=== PATIENT | female | born 1945 | race Caucasian/White ===

== ENCOUNTER → 2023-09-06 10:55 | Outpatient (REF) | payer OTHER, SELFPAY | LOC: RCS 10:55 | PROVIDERS: ATTENDING PHYSICIAN Internal Medicine Cardiovascular Disease; FAMILY PHYSICIAN Physician Assistant | DX: I49.1 Atrial premature depolarization (principal); I49.3 Ventricular premature depolarization | CPT/HCPCS: 93225; 93226 ==

== ENCOUNTER → 2023-09-12 13:53 | Outpatient (REF) | payer OTHER, SELFPAY | LOC: DHCBC HW 13:53 | PROVIDERS: ATTENDING PHYSICIAN Internal Medicine Cardiovascular Disease; FAMILY PHYSICIAN Physician Assistant | DX: I49.3 Ventricular premature depolarization (principal); I49.1 Atrial premature depolarization | CPT/HCPCS: 93306 ==

== ENCOUNTER 2023-10-22 09:44 | Day surgery (SDC) | payer OTHER, SELFPAY ==
--- NOTE | 2023-10-21 07:52 | HPS.HSE ---
Family Physician
-
Family Physician: NO INTERVIEW UNKNOWN
Chief Complaint
-
Persistent atrial fibrillation.
History of Present Illness
The patient is a 78 year old female presenting today for persistent atrial fibrillation. The patient reports a wide variety of symptoms associated with this diagnosis, which include palpitations, dyspnea on exertion, dizziness, and lightheadedness.
She is currently taking Metoprolol Succinate for pharmacological therapy. She is compliant with Eliquis for oral anticoagulation. She notes that her current symptoms greatly interfere with her activities of daily living and are overall impacting her
quality of life. She is interested in pursuing a cardioversion for further arrhythmia management. She denies any current complaints today such as chest pain, shortness of breath at rest, nausea, vomiting, diarrhea, cough, sore throat, or fever.
Medical History
Past Medical History
Past Medical History: Reports Other
Additional Past Medical History:
1. Persistent atrial fibrillation, pharmacological therapy with Metoprolol Succinate, oral anticoagulation with Eliquis.
2. Hypertension.
3. Dyslipidemia.
4. Paroxysmal atrial tachycardia.
5. PVCs.
6. Mild mitral regurgitation.
7. Mild tricuspid regurgitation.
8. Cerebrovascular accident, 07/2021, with short term memory loss.
9. GERD.
10. Diverticulosis.
11. Remote migraines.
12. Basal cell carcinoma, nose, status post MOHS.
13. Glaucoma, status post laser treatment.
14. Osteopenia.
15. Lyme disease 1998.
16. Hearing impairment bilaterally.
17. Obesity, BMI 31.7.
Past Surgical History: Reports Other
Additional Past Surgical History:
1. Left femur ORIF.
2. Cholecystectomy.
3. x2.
4. Basal cell carcinoma excision.
5. Laser treatment of glaucoma.
6. Cataract extraction.
7. Colonoscopy x3.
Social History
Tobacco: Non-smoker
Alcohol: Occasional
Living: Alone (in a third floor apartment with an elevator. )
Family History
Family History: Not pertinent
Allergies / Home Medications
Allergy/Medication List:
Home medications:
1. Amlodipine 5 mg p.o. every evening.
2. Eliquis 5 mg p.o. twice a day.
3. Arnica 3 tablets p.o. daily as needed.
4. Lisinopril-Hydrochlorothiazide 20-25 mg p.o. daily.
5. Metoprolol Succinate 25 mg p.o. daily.
Allergies: Penicillin. Sulfa. Tetracycline. Propranolol.
Review of Systems
-
A 12 point ROS was completed and negative except as noted: Yes
Physical Exam
Vital Signs
Blood pressure 131/68. Heart rate 89. Respirations 18. Pulse ox 97%.
Height 5 feet, 4 inches. Weight 83.8 kg. BMI 31.7.
Physical Exam
General: Well Developed, Well Nourished and No Apparent Distress
HEENT: NormoCephalic, Moist mucous membranes, Atraumatic and PERRLA
Respiratory: Clear
Cardiac: Irregular Rhythm
GI: Soft, Non Tender and Non Distended
Musculoskeletal: Normal Gait & Station
Skin: Warm and Dry
Neuro: AO x 3 and Nonfocal/grossly intact
Laboratory Results
-
EKG 10/21/2023: Atrial fibrillation with premature ventricular or aberrantly conducted complexes. Septal infarct, cited on or before 06/08/2015.
Echocardiogram 09/12/2023: Normal LV size and function with no regional wall motion abnormalities. Estimated LV ejection fraction 55 to 60% by visualization. Normal right ventricular size and function. Mild mitral regurgitation. Trace aortic
regurgitation. Mild tricuspid regurgitation. Estimated pulmonary artery pressure of 30 mmHg, assuming a right atrial pressure of 3 mmHg. Compared to prior from July 23, 2021, no significant change.
Nuclear stress test 02/15/2020: Negative EKG for ischemia. Normal perfusion imaging. Resting hypertension noted. The ejection fraction is 69%. This is a moderate risk study due to limited functional capacity.
Impression/Plan
-
IMPRESSION/PLAN:
1. Persistent atrial fibrillation: The patient is in need of a cardioversion with Dr. Cristóbal Carmen on 10/22/2023. The benefits and risks of the procedure have been explained to the patient. The patient understands these risks and wishes to
proceed. She will continue oral anticoagulation with Eliquis pre-operatively.
[2023-10-21 10:19] VITALS: BMI 31.7
== END 2023-10-22 11:12 | disposition home or self-care (01) ==
LOC: CATH 09:44
PROVIDERS: ATTENDING PHYSICIAN Internal Medicine; FAMILY PHYSICIAN Physician Assistant; OTHER PHYSICIAN Internal Medicine Cardiovascular Disease
DX: I48.19 Other persistent atrial fibrillation (principal); R00.2 Palpitations; R06.09 Other forms of dyspnea; R42 Dizziness and giddiness; Z79.01 Long term (current) use of anticoagulants; Z79.899 Other long term (current) drug therapy; I10 Essential (primary) hypertension; E78.5 Hyperlipidemia, unspecified; I08.1 Rheumatic disorders of both mitral and tricuspid valves; Z86.73 Personal history of transient ischemic attack (TIA), and cerebral infarction without residual deficits; I49.3 Ventricular premature depolarization; K21.9 Gastro-esophageal reflux disease without esophagitis; K57.90 Diverticulosis of intestine, part unspecified, without perforation or abscess without bleeding; G43.909 Migraine, unspecified, not intractable, without status migrainosus; Z85.828 Personal history of other malignant neoplasm of skin; H40.9 Unspecified glaucoma; M85.80 Other specified disorders of bone density and structure, unspecified site; Z86.19 Personal history of other infectious and parasitic diseases; H91.90 Unspecified hearing loss, unspecified ear; E66.9 Obesity, unspecified; Z68.31 Body mass index [BMI] 31.0-31.9, adult; Z88.0 Allergy status to penicillin; Z88.2 Allergy status to sulfonamides; Z88.1 Allergy status to other antibiotic agents
CPT/HCPCS: 92960; 93005

== ENCOUNTER → 2023-11-05 14:33 | Outpatient (REF) | payer OTHER, SELFPAY ==
[2023-11-05 16:29] LABS: % Basophils 0.8 % (0-2); % Eosinophils 0.7 % (0-6); % Immature Granulocytes 0.4 % (0-0.5); % Lymphocytes 29.3 % (20.5-51.1); % Monocytes 10.2 % (1.7-9.3); % Neutrophils 58.6 % (42.2-75.2); Absolute Basophils 0.1 10^3/uL (0-0.2); Absolute Eosinophils 0.1 10^3/uL (0-0.7); Absolute Immature Granulocytes 0.1 10^3/uL (0-0.05); Absolute Lymphocytes 4.1 10^3/uL (1.2-3.4); Absolute Monocytes 1.4 10^3/uL (0.1-0.6); Absolute Neutrophils 8.2 10^3/uL (1.4-6.5); Hematocrit 38.5 % (37.0-47.0); Hemoglobin 13.2 g/dL (12.0-16.0); Mean Corp Hgb Conc. 34.3 g/dL (33.0-37.0); Mean Corpuscular Hgb 31.7 pg (27.0-31.0); Mean Corpuscular Volume 92.5 fL (81.0-99.0); Mean Platelet Volume 9.6 fL (7.4-10.4); Nucleated Red Blood Cells % 0 %; Platelet Count 361 10^3/uL (130-400); Red Blood Cell Count 4.16 10^6/uL (4.20-5.40); Red Cell Dist. Width 12.5 % (11.5-14.5)
[2023-11-05 16:35] LABS: Erythrocyte Sed Rate 24 mm/hour (0-20)
[2023-11-05 16:48] LABS: Uric Acid 5.3 mg/dl (2.5-6.2)
[2023-11-06 15:13] LABS: Lyme Antibody Screen, EIA Negative (Negative)
== END ==
LOC: RAD 14:33
PROVIDERS: ATTENDING PHYSICIAN Physician Assistant
DX: M25.572 Pain in left ankle and joints of left foot (principal)
CPT/HCPCS: 36415; 73610; 84550; 85025; 85652; 86140; 86618

== ENCOUNTER → 2023-12-03 15:18 | Outpatient (REF) | payer OTHER, SELFPAY | LOC: WDC 15:18 | PROVIDERS: ATTENDING PHYSICIAN Physician Assistant | DX: Z12.31 Encounter for screening mammogram for malignant neoplasm of breast (principal) | CPT/HCPCS: 77063; 77067 ==

== ENCOUNTER 2024-01-29 06:04 | Day surgery (SDC) | payer OTHER, SELFPAY ==
[2024-01-13 11:01] VITALS: BMI 31.7
[2024-01-13 12:00] LABS: % Eosinophils 2.5 % (0-6); % Immature Granulocytes 0.2 % (0-0.5); % Lymphocytes 34.8 % (20.5-51.1); % Monocytes 8.4 % (1.7-9.3); % Neutrophils 53.1 % (42.2-75.2); Absolute Basophils 0.1 10^3/uL (0-0.2); Absolute Eosinophils 0.2 10^3/uL (0-0.7); Absolute Lymphocytes 3.2 10^3/uL (1.2-3.4); Absolute Monocytes 0.8 10^3/uL (0.1-0.6); Absolute Neutrophils 4.9 10^3/uL (1.4-6.5); Hematocrit 40.1 % (37.0-47.0); Hemoglobin 13.9 g/dL (12.0-16.0); Mean Corp Hgb Conc. 34.7 g/dL (33.0-37.0); Mean Corpuscular Hgb 32.1 pg (27.0-31.0); Mean Corpuscular Volume 92.6 fL (81.0-99.0); Nucleated Red Blood Cells % 0 %; Platelet Count 335 10^3/uL (130-400); Red Blood Cell Count 4.33 10^6/uL (4.20-5.40); Red Cell Dist. Width 13.2 % (11.5-14.5); White Blood Cell Count 9.3 10^3/uL (4.8-10.8)
[2024-01-13 12:06] LABS: ALT (SGPT) 18 U/L (0-35); AST (SGOT) 26 U/L (14-36); Albumin 4.7 g/dl (3.5-5.0); Alkaline Phosphatase 74 U/L (38-126); Blood Urea Nitrogen 11 mg/dl (7-17); Carbon Dioxide 22 mmol/L (22-30); Chloride 108 mmol/L (98-107); Estimated Creatinine Clearance 60 ml/min; Glucose 107 mg/dl (70-99); Potassium 4.2 mmol/L (3.5-5.1); Sodium 140 mmol/L (135-145); Total Bilirubin 0.9 mg/dl (0.2-1.3); Total Protein 7.5 g/dl (6.3-8.2); eGFR > 60.00
[2024-01-29] VITALS (33 sets, daily range): BP systolic 87–138; BP diastolic 50–92; BMI 31.2
[2024-01-29] MEDS: TYLENOL 1000 MG PO (07:10)
--- NOTE | 2024-01-29 07:26 | PTCARENOTE ---
Spoke to pt's sister Gabbi to inform her of timeline for pt's procedure today.
[2024-01-29 08:39] LABS: ACT-LR - POC 347 Seconds (116-155)
[2024-01-29 09:03] LABS: ACT-LR - POC 343 Seconds (116-155)
[2024-01-29 09:29] LABS: ACT-LR - POC 313 Seconds (116-155)
--- NOTE | 2024-01-29 10:19 | ITS.CL.ABL ---
Bladder Blower - Ablation
Ablation
Procedure Report:
AFIB ablation:
Ms. Beckford is a very pleasant 79 yr old woman with medical history significant for symptomatic persistent atrial fibrillation who is here in the EP lab for atrial fibrillation ablation
Date of Procedure:
01/29/2024
Indications:
Symptomatic atrial fibrillation
Pre-Operative Diagnosis:
Persistent Atrial fibrillation
Post-Operative Diagnosis:
Persistent Atrial fibrillation
Procedure Performed:
Atrial fibrillation ablation with wide area circumferential ablation (WACA) approach for pulmonary vein isolation
Performing Physician:
Dylon Bai MD
Assistants:
EP staff
Anesthesia:
See anesthesia records
Detailed Description of the Procedure:
Written informed consent was obtained from the patient after a full explanation of the risks and benefits of the procedure including the risks of sedation and anesthesia.
The patient was brought to the electrophysiology laboratory in stable condition in fasting state. Continuous electrocardiographic and hemodynamic monitoring was initiated.
The initial rhythm was atrial fibrillation.
The procedure site was meticulously prepared with surgical scrub and allowed to dry with no pooling. Sterile draping was applied to cover the procedure site. The image intensifier was draped with sterile bag and positioned over the patient. After
infusion of local anesthetic, vascular access was obtained under ultrasound guidance and sheaths were placed over guide wire as detailed below.
Sheath and Catheter Placement:
In the right femoral vein, an 8-Mozambican sheath was placed for use during the ablation procedure. A second 9-Fr sheath was placed for use during intracardiac echo procedure.
The sheaths were upgraded as needed during the case. Intracardiac catheters were positioned using direct fluoroscopic guidance.� ICE catheter was placed in RA. The following catheters / sheaths were placed
Sheaths:
��������������� Agilis sheath in right femoral vein upgraded from 8Fr in right femoral vein
��������������� 9Fr in right femoral vein
��������������� 7fr in right femoral vein
Catheters:
������������� Biosense Ha Thermacool STSF bidirectional (D/F) - at locations of HRA, RV, LA and LV.
������������� Pentaray catheter � at locations of RA� and LA
������������� ICE catheter - at locations of RA, SVC, and RV.
������������� Decapolar Bard catheter � at locations of RA and CS
Intracardiac ECHO:
An 8-Mozambican AcuNav intracardiac ECHO (ICE) probe was advanced through the 9-Mozambican sheath in the femoral vein into the right atrium under fluoroscopic and ICE ultrasound image guidance and a baseline ECHO study was performed. The left atrial size
was enlarged. There was trace tricuspid regurgitation. The aortic valve was normal. There was normal left ventricular size and function. There was no pericardial effusion. The KONRAD has low velocities noted on Doppler in atrial fibrillation. All the
four veins were identified and good flow noted.
During the procedure, ICE was used for monitoring of complications, guidance of trans-septal puncture, monitor the catheter position and tracking ablation lesions. No change in the pericardial space noted throughout the procedure.
Trans-septal Puncture:
Heparin was initiated and infused to maintain appropriate ACT.
A J-tipped guidewire was advanced through the 8-Mozambican sheath in the right femoral vein into the superior vena cava under fluoroscopic and ICE guidance. The 8-Mozambican sheath was exchanged for an Agilis sheath which was advanced into the superior vena
cava. A BRK needle was advanced until the tip was slightly behind the tip of the dilator inside the Agilis. The apparatus was withdrawn until it was in contact with the fossa ovalis. The position was adjusted based on fluoroscopy and ultrasound
images from ICE. Under fluoroscopic, hemodynamic and ICE ultrasound guidance, left atrium was cannulated by advancing the needle. Once atrial septum was cannulated, the needle was pulled back and a BMW guide wire was advanced through the needle into
the left atrium. The guide wire was advanced into the left superior pulmonary vein. Both the sheath and the dilator was advanced into the left atrium. The dilator with the needle was withdrawn. Blood was aspirated from the Agilis sheath and arterial
blood confirmed. The sheath was flushed. Saline injection noted into the left atrium on ICE. The pressure waveform was checked ad LA pressure measured. The penta-ray catheter was advanced in the Agilis sheath into the left pulmonary vein.
The 3-D mapping was done and then the penta-ray was switched to ablation catheter and back to penta-ray as needed.
3D Electroanatomic Mapping:
Using the Pentaray catheter advanced through Agilis sheath into the left atrium, an electroanatomic map (EAM) of the left atrium was created using [employer] Carto mapping system. The map was used for localization of catheter position and
tacking of ablation lesions. The EAM of the left atrium showed 4 pulmonary veins with all four electrically connected to the body the LA. It showed extensive low voltage areas in atrial fibrillation on the posterior wall of the LA in atrial
fibrillation and in sinus rhythm. The LA was dilated in size.
There were multitude of non-sustained AT noted once sinus rhythm achieved. There was catheter induced irritability and ectopy noted.
The four pulmonary veins were very active and significant ectopy was noted.
Following the EAM, preparations were made for ablation.
Phrenic nerve stimulation attempt:
The right sided pulmonary veins were identified and the anterior antrum and the deep anterior locations of the PVs were check with high output stimulation that showed no phrenic nerve capture in any of the potential ablation areas.
The safe areas were marked and a design line was created through the safe areas of tested antral myocardium for ablation lesions.
Ablation:
Pulmonary vein Isolation:
Radiofrequency ablation was performed using an open irrigation, force-sensing 3.5mm radiofrequency ablation catheter (Thermocool STSF) by completing the circumferential lesions around the left and right pulmonary veins achieving pulmonary vein
isolation.
All the ablation lesions were guided by the [facility] SURPOINT module with the posterior lesions were limited to 45 gutiérrez for SURPOINT lesion index goal of 400 and anterior wall lesions were limited to SURPOINT index goal of 450.
The esophagus was noted to be on the right side of the LA near the PV antra based on the locations of the esophageal temperature probe. Ablation was stopped for any temperature increase of 0.1 degree C. Max esophageal temperature was 38.1C.
Cardioversion:
Due to the persistence of atrial fibrillation following the PVI, the decision was made to proceed with a cardioversion followed by the remainder of the ablation as detailed below. Therefore, a 200J shock was delivered to the chest via Zoll patches
placed with episcopal of sinus rhythm. The patient remained hemodynamically stable throughout.
The CS was paced with the ablator and no cardiac pause noted.
EP study and Confirmation of the PVI and bidirectional block:
Following achievement of entrance block at the pulmonary veins, pacing from the pentaray catheter in KONRAD and the pentaray in each of the four veins at 10 milliamps for 2 milliseconds showed entrance and exit block. All PVI were rechecked at the end
of the case and remained isolated with dissociated and local capture with pacing. Entrance and exit block were demonstrated in all veins.
The atria tachycardia mapping was attempted but was non-sustained and were multiple with various locations. Decision was made to give Metoprolol and start Amiodarone for next few months.
The LA was mapped with Carto EAM in sinus rhythm confirming the line of block at the ablation lesions lines.
Sinus Node Function: The sinus node functions are within acceptable normal range.
The AV bharati functions are deemed within normal range.
Arrhythmia Induction:
No sustained arrhythmia was induced at the end of the study.�
Procedure End
ICE study was done again that showed no epicardial accumulation. No complications noted.
Following the completion of the EP study, catheters were removed. Protamine 30 mg was given at the end of the procedure and ACT was checked repeatedly. The sheaths were removed and hemostasis achieved with manual compression after acceptable ACT is
achieved.
Left atrial Pressure:
Pre-Procedure: Mean LA pressure was 13mmHg
Post-Procedure: Mean LA pressure was 15mmHg
Post-Procedure: Mean RA pressure was 8mmHg
Estimated Blood loss:
<10 cc
Specimens Removed:
None.
Implants / Devices:
None
Urine output:
None
Packs / Drains/ Tubes:
None
Instrument / Sponge Count Correct:
Yes
Complications of the Procedure:
None
Condition of Patient at Time of Transfer:
Hemodynamically stable with no neurological or vascular compromise.
Summary:
Successful atrial fibrillation ablation with circumferential bidirectional line of block at pulmonary vein antra (Pulmonary vein isolation)
AT#1
AT #2
--- NOTE | 2024-01-29 11:20 | PTCARENOTE ---
Pt post PVI. Pt arrived in controlled atrial fibrillation. Received in report pt having runs of atrial tachycardia during procedure. Pt arrived to procedure room in SR with PAC's and frequent runs of atrial tachycardia to high teens. Pt's blood
pressure 80-90's/50-70's. Pt asymptomatic and without complaints. Pt denies dizziness, lightheadedness, chest pain, and or SOB. EKG done. Karen Singer NP made aware and in to evaluate pt. No further orders at this time. Will continue to monitor.
[2024-01-29] MEDS: TOPROL XL 25 MG PO (13:05)
--- NOTE | 2024-01-29 14:55 | W.PN.UPDATE ---
Update Note
Progress Note Update
79 yo WF s/p PVI (same day She feels good, no cp, sob, carmen diet, voiding, amb w/o dizziness, R fem site c/d/i, EKG SR with intermittent PAT. She will continue OAC Eliquis dose at 4pm at home. She will continue metoprolol and we will add Amiodarone
200mg daily for 6 mo. She did receive 150mg IV bolus intraop. She will be on PPI for 2 weeks. Activity restrictions reviewed. She will f/u with MOTOR ELECTRICIAN in 2 weeks. She is for d/c home after 3pm.
Ms. Beckford is a very pleasant 79 yr old woman with medical history significant for symptomatic persistent atrial fibrillation who is here in the EP lab for atrial fibrillation ablation
01/29/2024
Post-Operative Diagnosis:
Persistent Atrial fibrillation
Procedure Performed:
Atrial fibrillation ablation with wide area circumferential ablation (WACA) approach for pulmonary vein isolation
== END 2024-01-29 15:10 | disposition home or self-care (01) ==
LOC: CATH 06:04
PROVIDERS: ATTENDING PHYSICIAN Internal Medicine Cardiovascular Disease; FAMILY PHYSICIAN Physician Assistant; OTHER PHYSICIAN Internal Medicine Cardiovascular Disease
DX: I48.19 Other persistent atrial fibrillation (principal); I10 Essential (primary) hypertension; E78.5 Hyperlipidemia, unspecified; Z86.73 Personal history of transient ischemic attack (TIA), and cerebral infarction without residual deficits; Z79.01 Long term (current) use of anticoagulants; Z79.899 Other long term (current) drug therapy; I47.19 Other supraventricular tachycardia; M85.80 Other specified disorders of bone density and structure, unspecified site; E66.9 Obesity, unspecified; Z68.31 Body mass index [BMI] 31.0-31.9, adult; Z88.0 Allergy status to penicillin; Z88.1 Allergy status to other antibiotic agents; Z88.2 Allergy status to sulfonamides; Z88.8 Allergy status to other drugs, medicaments and biological substances
CPT/HCPCS: C1769; C1894; C1730; C1732; C1766; C1892; C1759; 36415; 76937; 80053; 85025; 85347; 86850; 86900; 86901; 93005; 93656

== ENCOUNTER 2024-02-01 16:19 | Observation (INO) | payer OTHER, SELFPAY ==
[2024-02-01] VITALS (8 sets, daily range): BP systolic 111–135; BP diastolic 68–92; BMI 32.9; BMI 31.6
--- NOTE | 2024-02-01 09:56 | ED.GENMED ---
History of Present Illness
General
Chief Complaint: Breathing Problem
Source: patient
Exam Limitations: none
Time Seen by Provider: 02/01/24 09:52
History of Present Illness
History of Present Illness:
79-year-old female increased shortness of breath the last 2 or 3 days. This all started after a ablation for atrial fibrillation. No chest pain no pleuritic pain no back pain no fever. Symptoms are moderate in nature. Needs to sleep sitting up.
Some exertional component in addition
Past History
Past History
ED Past Medical History: HTN
ED Past Surgical History: Gynecological and Orthopedic
Social History
Tobacco: Non-smoker
Alcohol: None
Drug: None
Personal:
Living: with family
Employment: Retired
Family History
Family History: Other (Noncontributory)
Review of Systems
Review of Systems
All Other Systems: Not applicable
Constitutional: Denies fever
Respiratory: Reports cough
Cardiac: Denies chest pain or syncope
Phy Exam
Physical Exam
Physical Exam:
GENERAL: Alert and oriented in no apparent distress
EYE: Orbits normal.
NECK: Supple. No thyroid palpable
ENT: Pharynx without erythema
CARDIAC: Regular rate and rhythm without any obvious murmurs.
LUNGS: Minimally tachypneic with talking. Bibasilar Rales. No wheezing or rhonchi
ABDOMEN: Soft, without focal tenderness or distention
NEUROLOGICAL: Alert and oriented , grossly non-focal
SKIN: Warm and dry, no rash or lesion, no discoloration, skin intact.
MUSCULOSKELETAL: No edema,no deformity.Good color
PSYCH: Normal and appropriate interaction.
Scores
Heart Failure Risk
Heart Failure Risk Score: Yes
History of Stroke or TIA: No
History of intubation for respiratory distress: No
Heart rate on ED arrival >/= 110: No
SaO2 <90% on arrival on room air: No
HR >/=110 during 3min walk test (or too ill to perform test): Yes
ECG has acute ischemic changes: No
Urea >/=12mmol/L (BUN 33.6mg/dL): No
Serum CO2>/=35mmol/L: No
Troponin I or T elevated to IN Level (0.4mg/dL): No
NT-proBNP >/=5,000ng/L (5,000pg/ml): No
HF Risk Score: 2
Admission Status: MEDIUM RISK 9.2% Consider observation or discharge to home with homecare & f/u visit to PCP/Animal Laboratory Technician, or SNF for treatment
Course
Orders/Labs/Results
Orders:
Orders
02/01/24 09:38
Electrocardiogram (*1) Urgent
Reason for Study: Chest Pain
EKG- Treatment ONCE
02/01/24 10:07
IV Insert/Care/Rem.- Treatment PRN
Pulse Ox/cont/shift [RESP] Stat
Quantity: 1
02/01/24 10:09
Cardiac Monitoring- Treatment ONCE
CR Chest - 2 Views Urgent
Comment:
Reason For Exam: Short of breath/recent ablation
02/01/24 10:19
Basic Metabolic Panel Urgent
Complete Blood Count/With Diff Urgent
NT-proBNP Urgent
Troponin I Urgent
02/01/24 12:01
COVID-19 Antigen Routine
02/01/24 12:42
Furosemide [Lasix] 40 mg IV NOW STA
02/01/24 14:05
Echo 2D MMode Color/Doppler Routine
Reason for Study: CHEST PAIN POST ABLATION
02/01/24 15:20
Admit/Transfer Patient As Directed
Co-Sign Provider:
Level of Care: Inpatient admission
Assign to:: IVU
Physician / Group: rhea
Diagnosis: acuteleft HF
Reason for Hospitalization: acute HF
Expected length of stay greater than two midnights?: Yes
ELOS- Estimated Length of Stay in days: 2
I certify the patient meets the requirements for IP care: Yes
PRN Pain Medication Management As Directed
May give lesser potent ordered pain med per pt: Yes
preference::
Protocol:: Medication orders for pain may be administered in a
manner that supports deferring to patient preference
when the pt is:
-Requesting an ordered lesser potent pain medication.
Least to most potent pain medications are defined as:
acetaminophen < NSAID < tramadol < opioids (morphine,
oxycodone, hydromorphone).
- Requesting a lesser dose of the same medication IF
ORDERED.
- Requesting a less intrusive route of administration
if both routes are prescribed by the provider (PO <
IV).
02/01/24 20:27
Troponin I Routine
02/02/24 06:00
CBC/With Diff [Complete Blood Count/With Diff] IN AM
Renal Profile IN AM
Troponin I IN AM
Abnormal Lab Results
02/01/24
10:19
WBC 11.5 H 10^3/uL
(4.8-10.8)
RBC 3.89 L 10^6/uL
(4.20-5.40)
Hct 35.8 L %
(37.0-47.0)
MCH 31.9 H pg
(27.0-31.0)
Absolute Lymphs (auto) 3.5 H 10^3/uL
(1.2-3.4)
Absolute Monos (auto) 1.3 H 10^3/uL
(0.1-0.6)
Monocytes % 11.1 H %
(1.7-9.3)
Troponin I 0.105 H* ng/ml
02/01/24 10:19
02/01/24 10:19
Vital Signs
Initial and Last Documented VS:
Initial Vital Signs
Temp Pulse Resp BP Pulse Ox
99.1 F 65 16 134/72 96
02/01/24 09:39 02/01/24 09:39 02/01/24 09:39 02/01/24 09:39 02/01/24 09:39
Last Documented Vital Signs
Temp Pulse Resp BP Pulse Ox
99.1 F 62 18 123/74 96
02/01/24 09:39 02/01/24 16:13 02/01/24 16:13 02/01/24 16:13 02/01/24 16:13
*Radiology
Radiology exam reviewed: radiology read reviewed (Interstitial edema)
*Pulse Oximetry
Patient hypoxic: no
*EKG
Interpreted by ED Provider?: Yes
Interpretation: abnormal
Comparison EKG: changes noted (Improved lateral T wave changes)
Heart Rate: 70
Rate: normal
Rhythm: PAC's
[place]: indeterminate
Interval: normal interval
QRS Pattern: poor R-wave progression
Ischemia: non-specific ST changes
*Critical Care Note
Total Time (30-74mins, 75-104mins- exclusive of procedures): Not Applicable
Update Note
Update Note:
1243.... Patient appears to be in some CHF. Weight gain. Pulmonary edema by x-ray. Elevated proBNP. Interestingly patient was on a KIMBERLY inhibitor/hydrochlorothiazide that was stopped 2 weeks ago which also may be a factor. As far as her sulfa
allergy she is not sure. This was a long time ago and she thought she had a rash. However she has tolerated hydrochlorothiazide without any issues which has the same type of sulfur ring.
1600... Seen and admitted by cardiology
ED Attending Note
-
Portions of this chart may have been created with voice recognition software.� Occasional wrong word or��sound alike� substitutions may have occurred due to the inherent limitations of voice recognition software.
Discharge Plan
Departure
Patient Disposition: Admit
Date of Disposition: 02/01/24
Time of Disposition: 16:16
Presentation/result/management discussed w/ accepting MD/DO: Cardiology
Discharge Problem:
Pulmonary edema, Recent atrial fibrillation ablation
Prescriptions:
No Action
amlodipine 5 mg Tablet
5 mg PO QPM
metoprolol succinate 25 mg Tablet Extended Release 24 Hr
25 mg PO BID
Eliquis 5 mg Tablet
5 mg PO BID
arnica
3 pellet PO QIDPRN PRN (Reason: mild pain)
lisinopril 20 mg Tablet
20 mg PO DAILY
Skelp
3 pellet PO QIDPRN PRN (Reason: mild pain)
amiodarone 200 mg tablet
200 mg PO DAILY Qty: 90 3RF
pantoprazole [Protonix] 40 mg tablet,delayed release (DR/EC)
40 mg PO DAILY Qty: 14 0RF
Referrals:
Domenica Alvarez PA-C [Family Provider] -
Interventions
Interventions:
*Risk Screen - Suicide Last Done: 02/01/24 10:14
*General Assessment Last Done: 02/01/24 10:14
*Neglect/Abuse Screening Last Done: 02/01/24 10:14
ED- Fall Risk Assessment Last Done: 02/01/24 10:13
*ED COVID-19 Vaccine History Last Done: 02/01/24 10:14
ED- Cardiac Assessment Last Done: 02/01/24 10:15
ED- Pulmonary Assessment Last Done: 02/01/24 10:15
Discharge Date and Time
Print Language: SAMI
[2024-02-01 11:15] LABS: % Basophils 0.5 % (0-2); % Eosinophils 1.5 % (0-6); % Immature Granulocytes 0.3 % (0-0.5); % Lymphocytes 30.3 % (20.5-51.1); % Monocytes 11.1 % (1.7-9.3); % Neutrophils 56.3 % (42.2-75.2); Absolute Basophils 0.1 10^3/uL (0-0.2); Absolute Eosinophils 0.2 10^3/uL (0-0.7); Absolute Lymphocytes 3.5 10^3/uL (1.2-3.4); Absolute Monocytes 1.3 10^3/uL (0.1-0.6); Absolute Neutrophils 6.5 10^3/uL (1.4-6.5); Hematocrit 35.8 % (37.0-47.0); Hemoglobin 12.4 g/dL (12.0-16.0); Mean Corp Hgb Conc. 34.6 g/dL (33.0-37.0); Mean Corpuscular Hgb 31.9 pg (27.0-31.0); Mean Platelet Volume 10.3 fL (7.4-10.4); Nucleated Red Blood Cells % 0 %; Platelet Count 282 10^3/uL (130-400); Red Blood Cell Count 3.89 10^6/uL (4.20-5.40); Red Cell Dist. Width 14.1 % (11.5-14.5); White Blood Cell Count 11.5 10^3/uL (4.8-10.8)
[2024-02-01 11:28] LABS: Blood Urea Nitrogen 12 mg/dl (7-17); Calcium 9.5 mg/dl (8.4-10.2); Carbon Dioxide 27 mmol/L (22-30); Chloride 106 mmol/L (98-107); Estimated Creatinine Clearance 62 ml/min; Glucose 98 mg/dl (70-99); Potassium 4.3 mmol/L (3.5-5.1); Sodium 135 mmol/L (135-145); eGFR > 60.00
[2024-02-01 11:43] LABS: NT-proBNP 894 pg/ml; Troponin I 0.105 ng/ml
[2024-02-01 12:39] LABS: COVID-19 Antigen Negative (Negative)
[2024-02-01] MEDS: LASIX 40 MG IV (12:51)
--- NOTE | 2024-02-01 15:10 | W.PN.CD ---
Today's Communication / Plan
-
Diuresis
Monitor on telemetry
Serial troponins
Echo
Impression / Plan
-
78-year-old woman with persistent atrial fibrillation who underwent PVI on , 01/29/[address] Schuler. She states that when she got home she had some mild residual chest sensation also felt a little short of breath but then last night she
felt more short of breath and chest felt a bit tight. Even felt some shortness of breath after she got up. She called me and then was directed to the ER. No fever or cough. No lower extremity edema
A-fib ablation [facility] approach for PVI 01/29/2024
No history of CAD
In ER was suspected to have CHF and was given Lasix. She has undergone some diuresis and feels her breathing is improved and chest sensation has resolved.
Initial troponin 0.1
ECG sinus rhythm with no acute abnormality
PAST MEDICAL HISTORY:
1. Persistent symptomatic atrial fibrillation.CHADSVAC 6
2. Hypertension.
3. Hyperlipidemia.
4. 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
5. Osteopenia.
6. Obesity, BMI 31.7.
7. Lyme disease
8. Left femur ORIF, left femoral silvano
9. Cholecystectomy
10..
Medications
amiodarone 200 mg a day
Amlodipine 5 mg every afternoon
Lisinopril 20 mg daily
Metoprolol succinate 25 mg twice daily
Protonix 40 mg a day
[place] 3 pellets 4 times daily as needed
Social history non-smoker occasional alcohol sisters at the bedside
Allergies penicillin propranolol, statins, sulfa and tetracycline
Family history mother had rheumatic fever mitral valve disease and heart failure
Chest x-ray 02/01/2024 mild acute interstitial cardiogenic edema, small right and minimal left pleural effusions
Physical Exam
Vital Signs/Labs
Vital Signs
Temp Pulse Resp BP Pulse Ox
99.1 F 68 18 121/72 96
02/01/24 09:39 02/01/24 13:56 02/01/24 13:56 02/01/24 13:56 02/01/24 13:56
01/31/24 02/01/24 02/02/24
06:59 06:59 06:59
Actual Weight 85.5 kg
02/01/24 10:19
02/01/24 10:19
02/01/24
10:19
Pnt-[id number]-Scxcbaskwcq Pept 894
LAB Results
02/01/24
10:19
Troponin I 0.105 H*
Physical Exam
Constitutional: No acute distress
Cardiovascular: Rhythm & rate is regular (No murmur no bruit)
Respiratory: Wheeze Absent
GI: Soft
Neuro/Psych: Alert
Other: Skin
Data Reviewed
-
Date of Service: February 01, 2024
Medical Decision Making: Reviewed Test Results
Echo: Report Reviewed by me
Medical Tests (PFT, Pathology etc): Report Reviewed by me
Labs: Labs Reviewed by me
--- NOTE | 2024-02-01 18:33 | PTCARENOTE ---
Pt admitted from ED with SOB and constant 2/10 chest tightness since her PVI on 01/29/24. Pt stated she felt much better after diuresing with lasix in ED. Right femoral venous site ecchymotic and soft. Pt given CHF information. Telemetry shows sinus
rhythm with occasional PAC's.
[2024-02-01] MEDS: PACERONE 200 MG PO (19:57)
[2024-02-01] MEDS: ELIQUIS 5 MG PO (19:58)
[2024-02-01] MEDS: TOPROL XL 25 MG PO (19:58)
[2024-02-01] MEDS: PROTONIX 40 MG PO (19:58)
--- NOTE | 2024-02-01 20:40 | PTCARENOTE ---
Assumed care of patient at 1900, vs downloaded by me prior to that time were from previous shift.
[2024-02-01] MEDS: NORVASC 5 MG PO (20:58)
[2024-02-01 21:57] LABS: Troponin I 0.087 ng/ml
--- NOTE | 2024-02-01 23:36 | PTCARENOTE ---
No complaints of pain or discomfort. SR on the monitor in the 70's.
[2024-02-02 05:23] VITALS: BP 120/63
[2024-02-02 05:33] VITALS: BMI 31.5
[2024-02-02 06:16] LABS: % Basophils 0.7 % (0-2); % Eosinophils 2.5 % (0-6); % Immature Granulocytes 0.3 % (0-0.5); % Lymphocytes 31.8 % (20.5-51.1); % Monocytes 10.9 % (1.7-9.3); % Neutrophils 53.8 % (42.2-75.2); Absolute Basophils 0.1 10^3/uL (0-0.2); Absolute Eosinophils 0.3 10^3/uL (0-0.7); Absolute Lymphocytes 3.8 10^3/uL (1.2-3.4); Absolute Monocytes 1.3 10^3/uL (0.1-0.6); Absolute Neutrophils 6.5 10^3/uL (1.4-6.5); Hematocrit 35.5 % (37.0-47.0); Hemoglobin 12.6 g/dL (12.0-16.0); Mean Corp Hgb Conc. 35.5 g/dL (33.0-37.0); Mean Corpuscular Hgb 32.1 pg (27.0-31.0); Mean Corpuscular Volume 90.6 fL (81.0-99.0); Mean Platelet Volume 10.1 fL (7.4-10.4); Nucleated Red Blood Cells % 0 %; Platelet Count 281 10^3/uL (130-400); Red Blood Cell Count 3.92 10^6/uL (4.20-5.40); Red Cell Dist. Width 13.6 % (11.5-14.5); White Blood Cell Count 12.1 10^3/uL (4.8-10.8)
[2024-02-02 06:35] LABS: Blood Urea Nitrogen 12 mg/dl (7-17); Calcium 9.7 mg/dl (8.4-10.2); Carbon Dioxide 27 mmol/L (22-30); Chloride 103 mmol/L (98-107); Estimated Creatinine Clearance 59 ml/min; Glucose 101 mg/dl (70-99); Potassium 3.7 mmol/L (3.5-5.1); Sodium 137 mmol/L (135-145); Troponin I 0.079 ng/ml; eGFR > 60.00
[2024-02-02 07:02] VITALS: BP 117/72
[2024-02-02 07:10] LABS: Hepatitis C Antibody Negative (Negative)
--- NOTE | 2024-02-02 08:08 | W.PN.CD ---
Today's Communication / Plan
-
- Stable for discharge
Impression / Plan
-
78-year-old woman with persistent atrial fibrillation who underwent PVI on , 01/29/[address] Schuler - was noted to have edema and pleural effusion s/p diuresis and is feeling much better.
Can be discharged home today. PRN lasix 20 mg QD.
A-fib ablation [facility] approach for PVI 01/29/2024
No history of CAD
In ER was suspected to have CHF and was given Lasix. She has undergone some diuresis and feels her breathing is improved and chest sensation has resolved.
Initial troponin 0.1
ECG sinus rhythm with no acute abnormality
PAST MEDICAL HISTORY:
1. Persistent symptomatic atrial fibrillation.CHADSVAC 6
2. Hypertension.
3. Hyperlipidemia.
4. 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
5. Osteopenia.
6. Obesity, BMI 31.7.
7. Lyme disease
8. Left femur ORIF, left femoral silvano
9. Cholecystectomy
10..
Medications
amiodarone 200 mg a day
Amlodipine 5 mg every afternoon
Lisinopril 20 mg daily
Metoprolol succinate 25 mg twice daily
Protonix 40 mg a day
[place] 3 pellets 4 times daily as needed
Social history non-smoker occasional alcohol sisters at the bedside
Allergies penicillin propranolol, statins, sulfa and tetracycline
Family history mother had rheumatic fever mitral valve disease and heart failure
Chest x-ray 02/01/2024 mild acute interstitial cardiogenic edema, small right and minimal left pleural effusions
Physical Exam
Vital Signs/Labs
Vital Signs
Temp Pulse Resp BP Pulse Ox
98.9 F 64 20 120/63 98
02/02/24 06:57 02/02/24 06:00 02/02/24 06:57 02/02/24 05:23 02/02/24 06:57
02/01/24 02/02/24 02/03/24
06:59 06:59 06:59
Actual Weight 80.7 kg
02/02/24 05:29
02/02/24 05:29
02/01/24
10:19
Djf-B-Fpeacitisth Pept 894
LAB Results
02/01/24 02/01/24 02/02/24
10:19 21:15 05:29
Troponin I 0.105 H* 0.087 H* 0.079 H*
Physical Exam
Constitutional: No acute distress and Comfortable
EENT: Anicteric and Moist mucous membranes
Cardiovascular: Rhythm & rate is regular, Pedal edema is absent and JVD pressure is normal
Respiratory: Respiratory effort normal, Lungs clear to auscul. and Wheeze Absent
GI: Soft, Non tender and Normal bowel sounds
Neuro/Psych: Alert, Oriented and AO x 3
Data Reviewed
-
Date of Service: February 02, 2024
Medical Decision Making: Reviewed Test Results, Independent Historian Assessment and Test Interpretation
EKG: Tracing Personally Visualized and interpreted
Echo: Report Reviewed by me
X-Ray/CT/US/MRI/NUC/PET: Image Personally Visualized and interpreted
Labs: Labs Reviewed by me
Old Records: Reviewed
[2024-02-02] MEDS: PACERONE 200 MG PO (09:36)
[2024-02-02] MEDS: NORVASC 5 MG PO (09:37)
[2024-02-02] MEDS: ZESTRIL 20 MG PO (09:37)
[2024-02-02] MEDS: TOPROL XL 25 MG PO (09:37)
[2024-02-02] MEDS: PROTONIX 40 MG PO (09:37)
[2024-02-02] MEDS: ELIQUIS 5 MG PO (09:38)
--- NOTE | 2024-02-02 10:06 | W.DS.TRANS ---
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
-
Discharge Instructions:
Sleep Apnea Risk Low
Discharge Diagnosis/Procedures HFpEF
Pleural effusions
Atrial fibrillation ablation 01/29/2024
Diet 2 Gram Sodium,Low Cholesterol
Activity No strenuous activity
Additional Activity Continue post procedure instructions
Driving Restrictions As prior to admission
Bathing Restrictions None
Blood Work BMP in one week. This has been electronically
sent to [facility] lab.
Specialty Instructions Weigh Daily
Instructions:
Stand-Alone Forms:
Changes to Home Medications: Yes
Discharge Medications:
DC Medications w/original date entered in [employer]
amlodipine 5 mg tablet 5 mg PO QPM Blood Pressure 10/16/23
apixaban 5 mg tablet (Eliquis) 5 mg PO BID Blood Clot Prevention/Tx 10/16/23
arnica 3 pellet PO QIDPRN PRN mild pain 10/16/23
metoprolol succinate 25 mg tablet,extended release 24 hr 25 mg PO BID Blood Pressure 10/16/23
lisinopril 20 mg tablet 20 mg PO DAILY Blood Pressure 01/09/24
[place] 3 pellet PO QIDPRN PRN mild pain 01/29/24
amiodarone 200 mg tablet 200 mg PO DAILY Arrhythmia 02/02/24
furosemide 20 mg tablet 20 mg PO DAILY #30 tabs 02/02/24
pantoprazole 40 mg tablet,delayed release (Protonix) 40 mg PO DAILY Gastrointestinal Issue 02/02/24
Home Medication Changes
Furosemide is NEW
Pending Results: No
[2024-02-02] MEDS: LASIX 20 MG PO (10:30)
--- NOTE | 2024-02-02 11:59 | CM ---
spoke to pt i room, she is prev indep, lives alone in an apt with no steps to enter. she denies any dc planning needs or dme's. plan is for dc to home today.
--- NOTE | 2024-02-02 12:56 | PTCARENOTE ---
D/C instructions given to patient, verbalizes understanding. INT D/C'd, telemetry D/C'd, personal belongings packed and sent home with patient. D/C to home via wc accompanied by vol. services.
== END 2024-02-02 13:03 | disposition home or self-care (01) ==
LOC: IVU 16:19
PROVIDERS: ADMITTING PHYSICIAN Internal Medicine Cardiovascular Disease; EMERGENCY PHYSICIAN Emergency Medicine; FAMILY PHYSICIAN Physician Assistant
DX: G89.18 Other acute postprocedural pain (principal); I48.19 Other persistent atrial fibrillation; I50.31 Acute diastolic (congestive) heart failure; R06.02 Shortness of breath; R07.9 Chest pain, unspecified; I11.0 Hypertensive heart disease with heart failure; R05.9 Cough, unspecified; J90 Pleural effusion, not elsewhere classified; J98.11 Atelectasis; M19.012 Primary osteoarthritis, left shoulder; M19.011 Primary osteoarthritis, right shoulder; J81.0 Acute pulmonary edema; I08.3 Combined rheumatic disorders of mitral, aortic and tricuspid valves; E66.9 Obesity, unspecified; E78.5 Hyperlipidemia, unspecified; M85.80 Other specified disorders of bone density and structure, unspecified site; I69.320 Aphasia following cerebral infarction; Z68.31 Body mass index [BMI] 31.0-31.9, adult; Z98.890 Other specified postprocedural states; Z79.01 Long term (current) use of anticoagulants; Z88.1 Allergy status to other antibiotic agents; Z88.0 Allergy status to penicillin; Z88.2 Allergy status to sulfonamides; Z88.8 Allergy status to other drugs, medicaments and biological substances; Z82.49 Family history of ischemic heart disease and other diseases of the circulatory system; Z11.52 Encounter for screening for COVID-19
CPT/HCPCS: 71046; 80048; 80069; 83880; 84484; 85025; 86803; 87811; 93005; 93306; 96374; 99285; G0378

== ENCOUNTER → 2024-02-11 09:25 | Outpatient (REF) | payer OTHER, SELFPAY ==
[2024-02-11 11:45] LABS: Blood Urea Nitrogen 12 mg/dl (7-17); Calcium 9.7 mg/dl (8.4-10.2); Carbon Dioxide 24 mmol/L (22-30); Chloride 106 mmol/L (98-107); Glucose 101 mg/dl (70-99); Potassium 4.2 mmol/L (3.5-5.1); Sodium 138 mmol/L (135-145); eGFR > 60.00
== END ==
LOC: REG 09:25
PROVIDERS: ATTENDING PHYSICIAN Internal Medicine Cardiovascular Disease; FAMILY PHYSICIAN Physician Assistant
DX: I50.30 Unspecified diastolic (congestive) heart failure (principal)
CPT/HCPCS: 36415; 80048; 83735

== ENCOUNTER 2024-09-28 03:15 | Emergency (ER) | payer OTHER, SELFPAY ==
[2024-09-28 03:17] VITALS: BP 190/91
[2024-09-28 03:27] VITALS: BP 161/79
--- NOTE | 2024-09-28 03:39 | ED.GENMED ---
History of Present Illness
General
Chief Complaint: Urinary Symptoms
Time Seen by Provider: 09/28/24 03:22
History of Present Illness
History of Present Illness:
79-year-old female with history of A-fib status post ablation on Eliquis and hypertension presenting to the emergency department for concern of UTI. No since yesterday morning she has had dysuria and 'murky 'urine. She reports that she has had 2
urine infections in the past month, treated with Macrobid with improvement. Also notes some back pain and chills. Symptoms worsened prior to arrival. Denies chest pain or difficulty breathing. Denies abdominal pain. Denies additional acute
medical complaints
Past History
Past History
ED Past Medical History: HTN
ED Past Surgical History: Gynecological and Orthopedic
Social History
Tobacco: Non-smoker
Alcohol: None
Drug: None
Personal:
Living: with family
Employment: Retired
Family History
Family History: Other (Noncontributory)
Phy Exam
Physical Exam
Physical Exam:
General: Well-appearing, no clinical signs of dehydration, nontoxic and in no acute distress
HEENT: protecting airway
Neck: appears supple
CV: Normal heart rate, regular rhythm,
Resp: No accessory muscle use, no increased work of breathing, lungs clear to auscultation bilaterally
Abd: Soft and non-distended, no tenderness to palpation, no CVA tenderness
Extremities: No deformities, no swelling
Neuro: alert, no focal neurologic deficit
: deferred
Rectal: deferred
Psych: Normal affect
Skin: Intact
Sepsis
Sepsis Screening
Sepsis Assessment: Sepsis Ruled Out
Sepsis Screen
Sepsis Screen: Sepsis Ruled Out
Date: 09/28/24
Time: 06:46
Course
Orders/Labs/Results
Orders:
Orders
09/28/24 03:39
Complete Blood Count/With Diff Urgent
Comprehensive Metabolic Panel Urgent
Urinalysis Reflex To Culture Urgent
Date Specimen was Collected: 09/28/24
Time Specimen was Collected: 03:34
Urine Microscopic Reflex Cult Urgent
Urine Culture Urgent
CARINA Source: U
Specimen Description:
Date Specimen was Collected: 09/28/24
Time Specimen was Collected: 03:34
09/28/24 04:23
CT Abd/pelvis W Iv Cont Urgent
Comment:
Reason For Exam: urinary symptoms, back pain
09/28/24 06:20
Cephalexin Monohydrate [Keflex] 500 mg PO NOW STA
Abnormal Lab Results
09/28/24
03:39
WBC 11.1 H 10^3/uL
(4.8-10.8)
MCH 32.9 H pg
(27.0-31.0)
Absolute Lymphs (auto) 4.4 H 10^3/uL
(1.2-3.4)
Absolute Monos (auto) 1.1 H 10^3/uL
(0.1-0.6)
Monocytes % 9.8 H %
(1.7-9.3)
Chloride 97 L mmol/L
(98-107)
Ur Occult Blood Reflex 1+ A
(Negative)
Leukocyte Esterase Rfl 3+ A
(Negative)
Urine RBC 3-6 A /HPF
(0-2)
Urine WBC (Reflex) >100 A /HPF
(0-5)
Urine Bacteria (Reflex) Moderate A
(Negative)
09/28/24 03:39
09/28/24 03:39
Vital Signs
Initial and Last Documented VS:
Initial Vital Signs
Temp Pulse Resp BP Pulse Ox
97.8 F 74 22 190/91 100
09/28/24 03:17 09/28/24 03:17 09/28/24 03:17 09/28/24 03:17 09/28/24 03:17
Last Documented Vital Signs
Temp Pulse Resp BP Pulse Ox
97.8 F 74 22 161/79 98
09/28/24 03:17 09/28/24 03:17 09/28/24 03:17 09/28/24 03:27 09/28/24 03:30
MDM/Problems Addressed
MDM/Problems Addressed:
79-year-old female presenting for concern of UTI. Vital signs are significant for high blood pressure
On exam patient is resting comfortably, no acute distress or discomfort. She is afebrile, nontoxic. Symptoms appear most consistent with UTI. Abdomen is soft, nondistended, nontender without significant concern for severe intra-abdominal process.
No CVA tenderness, afebrile, lower suspicion for pyelo. Will initiate workup with laboratory analysis and urinalysis
04:20 -patient does have a mild leukocytosis. Urine does show leukocytes. Given recurrent symptoms with leukocytosis, will obtain CT imaging.
06:10 -CT without acute process. At this time suspect uncomplicated cystitis. Given that patient has already been on Macrobid, will try Keflex. Notes she has had this medication in the past. Feel stable for discharge. Results provided to
patient including results of CT scan. Return precautions discussed and patient verbalized understanding
*Critical Care Note
Total Time (30-74mins, 75-104mins- exclusive of procedures): Not Applicable
ED Attending Note
-
Portions of this chart may have been created with voice recognition software.� Occasional wrong word or��sound alike� substitutions may have occurred due to the inherent limitations of voice recognition software.
Discharge Plan
Departure
Patient Disposition: Home (Routine Discharge)
Date of Disposition: 09/28/24
Time of Disposition: 06:21
Patient with high blood pressure during this ER visit?: Yes
Condition: Good
Discharge Problem:
Urinary tract infection
Instructions: Urinary Tract Infection, Adult (DC), BLOOD PRESSURE
Prescriptions:
New
cephalexin 500 mg capsule
500 mg PO BID 7 Days Qty: 14 0RF
No Action
amlodipine 5 mg Tablet
5 mg PO QPM
metoprolol succinate 25 mg Tablet Extended Release 24 Hr
25 mg PO BID
Eliquis 5 mg Tablet
5 mg PO BID
arnica
3 pellet PO QIDPRN PRN (Reason: mild pain)
lisinopril 20 mg Tablet
20 mg PO DAILY
[place]
3 pellet PO QIDPRN PRN (Reason: mild pain)
amiodarone 200 mg tablet
200 mg PO DAILY
pantoprazole [Protonix] 40 mg tablet,delayed release (DR/EC)
40 mg PO DAILY
furosemide 20 mg tablet
20 mg PO DAILY Qty: 30 0RF
Referrals:
Domenica Alvarez PA-C [Family Provider] -
Activity Restrictions/Additional Instructions:
You were seen in the emergency department for urinary complaints
You were found to have a urinary tract infection. You were started on Keflex. You had CT imaging of your abdomen which did not show any infection to the kidney. 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
follow-up
Please follow-up closely with your primary care physician.
Return to the emergency department for any worsening of your symptoms, or any development of chest pain, difficulty breathing, abdominal pain with persistent vomiting and inability to tolerate food or liquid by mouth (concern for dehydration),
weakness, headache or confusion, fever greater than 100.4, or any additional symptoms that are concerning to you.
Thank you for choosing [facility].
Interventions
Interventions:
*Risk Screen - Suicide Last Done: 09/28/24 03:17
*General Assessment Last Done: 09/28/24 03:26
*Neglect/Abuse Screening Last Done: 09/28/24 03:17
*ED- Fall Risk Assessment Last Done: 09/28/24 03:26
*ED COVID-19 Vaccine History Last Done: 09/28/24 03:26
ED-Female Genitourinary Assessment Last Done: 09/28/24 03:26
Discharge Date and Time
Print Language: ROMANSH
[2024-09-28 04:04] LABS: Urine Albumin Negative (Neg - Trace); Urine Bilirubin Negative (Negative); Urine Character Clear (Clear); Urine Color Yellow; Urine Glucose Negative (Negative); Urine Ketone Negative (Negative); Urine Leukocyte 3+ (Negative); Urine Nitrite Negative (Negative); Urine Occult Blood 1+ (Negative); Urine Urobilinogen Negative (Neg - 1+)
[2024-09-28 04:06] LABS: % Eosinophils 2.7 % (0-6); % Immature Granulocytes 0.2 % (0-0.5); % Lymphocytes 39.9 % (20.5-51.1); % Monocytes 9.8 % (1.7-9.3); % Neutrophils 46.4 % (42.2-75.2); Absolute Basophils 0.1 10^3/uL (0-0.2); Absolute Eosinophils 0.3 10^3/uL (0-0.7); Absolute Lymphocytes 4.4 10^3/uL (1.2-3.4); Absolute Monocytes 1.1 10^3/uL (0.1-0.6); Absolute Neutrophils 5.1 10^3/uL (1.4-6.5); Hematocrit 38.7 % (37.0-47.0); Hemoglobin 13.8 g/dL (12.0-16.0); Mean Corp Hgb Conc. 35.7 g/dL (33.0-37.0); Mean Corpuscular Hgb 32.9 pg (27.0-31.0); Mean Corpuscular Volume 92.1 fL (81.0-99.0); Mean Platelet Volume 9.3 fL (7.4-10.4); Nucleated Red Blood Cells % 0 %; Platelet Count 316 10^3/uL (130-400); Red Cell Dist. Width 12.4 % (11.5-14.5); White Blood Cell Count 11.1 10^3/uL (4.8-10.8)
[2024-09-28 04:23] LABS: Urine White Cell >100 /HPF (0-5)
[2024-09-28 04:24] LABS: Urine Bacteria Moderate (Negative)
[2024-09-28 04:30] VITALS: BMI 32.1
[2024-09-28 04:34] LABS: ALT (SGPT) 20 U/L (0-35); AST (SGOT) 26 U/L (14-36); Albumin 4.8 g/dl (3.5-5.0); Alkaline Phosphatase 84 U/L (38-126); Blood Urea Nitrogen 11 mg/dl (7-17); Calcium 10.2 mg/dl (8.4-10.2); Carbon Dioxide 29 mmol/L (22-30); Chloride 97 mmol/L (98-107); Glucose 97 mg/dl (70-99); Potassium 3.6 mmol/L (3.5-5.1); Sodium 136 mmol/L (135-145); Total Bilirubin 0.5 mg/dl (0.2-1.3); Total Protein 7.7 g/dl (6.3-8.2); eGFR > 60.00
[2024-09-28] MEDS: KEFLEX 500 MG PO (07:03)
[2024-09-28 07:05] VITALS: BP 142/79
== END 2024-09-28 07:18 | disposition home or self-care (01) ==
LOC: EMR 03:15
PROVIDERS: EMERGENCY PHYSICIAN Student in an Organized Health Care Education/Training Program; FAMILY PHYSICIAN Physician Assistant
DX: N39.0 Urinary tract infection, site not specified (principal); I48.91 Unspecified atrial fibrillation; I10 Essential (primary) hypertension; Z79.01 Long term (current) use of anticoagulants
CPT/HCPCS: 99284; 74177; 80053; 81003; 81015; 85025; 87086; Q9967

== ENCOUNTER → 2024-10-30 09:27 | Outpatient (REF) | payer OTHER, SELFPAY ==
[2024-10-30 10:48] LABS: Blood Urea Nitrogen 16 mg/dl (7-17); Calcium 9.7 mg/dl (8.4-10.2); Carbon Dioxide 26 mmol/L (22-30); Chloride 103 mmol/L (98-107); Glucose 95 mg/dl (70-99); Potassium 3.7 mmol/L (3.5-5.1); Sodium 138 mmol/L (135-145); eGFR > 60.00
== END ==
LOC: REG 09:27
PROVIDERS: ATTENDING PHYSICIAN Physician Assistant
DX: I10 Essential (primary) hypertension (principal)
CPT/HCPCS: 36415; 80048

== ENCOUNTER → 2024-11-01 19:20 | Outpatient (REF) | payer OTHER, SELFPAY | LOC: MRI 3T 19:20 | PROVIDERS: ATTENDING PHYSICIAN Physical Medicine & Rehabilitation; FAMILY PHYSICIAN Physician Assistant | DX: M54.16 Radiculopathy, lumbar region (principal) | CPT/HCPCS: 72148 ==

== ENCOUNTER → 2024-12-09 07:32 | Outpatient (REF) | payer OTHER, SELFPAY | LOC: PAVMRI 07:32 | PROVIDERS: ATTENDING PHYSICIAN Physician Assistant | DX: K86.89 Other specified diseases of pancreas (principal) | CPT/HCPCS: 74183; A9575 ==

== ENCOUNTER → 2025-02-18 09:39 | Outpatient (REF) | payer OTHER, SELFPAY | LOC: HWRAD 09:39 | PROVIDERS: ATTENDING PHYSICIAN Nurse Practitioner; FAMILY PHYSICIAN Physician Assistant | DX: N39.0 Urinary tract infection, site not specified (principal) | CPT/HCPCS: 76770; 76856 ==

== ENCOUNTER → 2025-04-01 11:01 | Outpatient (REF) | payer OTHER, SELFPAY | LOC: WDC 11:01 | PROVIDERS: ATTENDING PHYSICIAN Nurse Practitioner Adult Health; FAMILY PHYSICIAN Physician Assistant | DX: M85.89 Other specified disorders of bone density and structure, multiple sites (principal); Z12.31 Encounter for screening mammogram for malignant neoplasm of breast | CPT/HCPCS: 77063; 77067; 77080 ==

== ENCOUNTER → 2025-04-26 09:39 | Outpatient (REF) | payer OTHER, SELFPAY | LOC: HWRAD 09:39 | PROVIDERS: ATTENDING PHYSICIAN Physician Assistant | DX: Z86.73 Personal history of transient ischemic attack (TIA), and cerebral infarction without residual deficits (principal); R26.81 Unsteadiness on feet; H93.3X1 Disorders of right acoustic nerve; R09.81 Nasal congestion | CPT/HCPCS: 70450; 70486 ==

== ENCOUNTER → 2025-04-28 11:23 | Outpatient (REF) | payer OTHER, SELFPAY | LOC: RAD 11:23 | PROVIDERS: ATTENDING PHYSICIAN Physician Assistant | DX: Z86.73 Personal history of transient ischemic attack (TIA), and cerebral infarction without residual deficits (principal); I10 Essential (primary) hypertension; E78.00 Pure hypercholesterolemia, unspecified; R26.81 Unsteadiness on feet; H93.8X1 Other specified disorders of right ear; R09.81 Nasal congestion | CPT/HCPCS: 93880 ==